=== PATIENT | male | born 1975 | race Caucasian/White ===

== ENCOUNTER 2021-12-01 15:20 | Emergency (ER) | payer SELFPAY ==
[~2021-12-01] VITALS: Ht 157.5 cm; Wt 76.4 kg
[~2021-12-01 15:20] MED LIST: ASPI81TA39 PO; LISI5TAB PO; OMEP20CA12 PO
[2021-12-01] MEDS ORDERED: CORTSUSP AS (16:32)
[2021-12-01 16:54] VITALS: BP 162/102
== END 2021-12-01 17:09 | disposition home or self-care (01) ==
LOC: EMS 15:20
DX: H60.92 Unspecified otitis externa, left ear (principal); F41.9 Anxiety disorder, unspecified; I10 Essential (primary) hypertension
CPT/HCPCS: 99283; Z7502